=== PATIENT | female | born 1985 | race Two or more races ===

== ENCOUNTER 2018-02-13 20:57 | Emergency (ER) | payer SELFPAY ==
--- NOTE | 2018-02-13 22:17 | ED PDOC ---
History of Present Illness History of Present Illness: 33 y/o F with 27 weeks with hx of hyperthyroidism s/p resection now with hypothyroidism on Synthroid who presents with fever, body aches and sore throat since yesterday evening. pt states that she began having runny nose, mild cough, body aches and fever to 100.2F yesterday. She further endorses B/L ear pain and mild sore throat. Denies N/V, diarrhea, sick contacts, abdominal pain/cramping, dysuria, urinary frequency. Has had the flu shot this season. She called her PMD who advised her to go to ED for blood work and further evaluation. HPI: Influenza Time Seen by Provider: 02/13/18 21:31 Chief Complaint: Fever Chief Complaint (Provider): fever, body aches History Per: Patient Exam Limitations: no limitations Have you had recent travel within the past 21 days to any of: No Onset/Duration Of Symptoms: Days Symptoms include: fever, headache, bodyaches, sore throat, cough, nasal congestion. denies: vomiting, diarrhea, chest pain, difficulty breathing, blurry vision Sick Contacts (Context): None Hx Influenza Vaccination: Yes Risk factors for flu complications: Yes: Past Medical History Reviewed: Historical Data, Nursing Documentation, Vital Signs Vital Signs: Last Vital Signs Temp 98.3 F 02/13/18 21:00 Pulse 109 H 02/13/18 21:00 Resp 16 02/13/18 21:00 BP 122/70 02/13/18 21:00 Pulse Ox 100 02/13/18 21:00 - Medical History PMH: Hypothyroidism - Family History Family History: States: Unknown Family Hx - Living Arrangements Living Arrangements: With Family - Social History Current smoker - smoking cessation education provided: No Ex-Smoker (has not smoked in the last 12 months): No Alcohol: None Drugs: Denies - Immunization History Hx Influenza Vaccination: Yes - Home Medications Home Medications: Ambulatory Orders Medication Instructions Recorded Acetaminophen [Tylenol 325mg tab] 650 mg PO Q6 PRN 5 Days tab 02/13/18 - Allergies Allergies/Adverse Reactions: Allergies Allergy/AdvReac Type Severity Reaction Status Date / Time No Known Allergies Allergy Verified 02/13/18 21:00 Review of Systems ROS Statement: Except As Marked, All Systems Reviewed And Found Negative Constitutional: Positive for: Fever, Malaise ENT: Positive for: Ear Pain, Nose Congestion, Throat Pain Cardiovascular: Negative for: Chest Pain, Palpitations Respiratory: Positive for: Cough. Negative for: Shortness of Breath Gastrointestinal: Negative for: Nausea, Vomiting, Abdominal Pain Genitourinary Female: Negative for: Vaginal Bleeding Physical Exam - Reviewed Nursing Documentation Reviewed: Yes Vital Signs Reviewed: Yes - Physical Exam Appears: Positive for: Uncomfortable Head Exam: Positive for: ATRAUMATIC Skin: Positive for: Normal Color Eye Exam: Positive for: Normal appearance ENT: Positive for: TM Is/Are (Left normal, Right mildly erythematous), Nasal Congestion, Pharyngeal Erythema (mild). Negative for: Tonsillar Exudate, Tonsillar Swelling Neck: Positive for: Supple Cardiovascular/Chest: Positive for: Regular Rate, Rhythm Respiratory: Positive for: Normal Breath Sounds Lymphatic: Positive for: Normal Exam Neurologic/Psych: Positive for: Alert, Oriented Medical Decision Making Medical Decision Making: Rapid Flu Rapid strep Tylenol 650mg PO x 1 Rapid flu and strep negative. Pt advised to return to ED if worsening ear pain or fever or if she develops shortness of breath. - ECG O2 Sat by Pulse Oximetry: 100 Disposition - Clinical Impression Clinical Impression: URI, acute - Patient ED Disposition Is Patient to be Admitted: No Counseled Patient/Family Regarding: Studies Performed, Diagnosis, Need For Followup, Rx Given - Disposition Disposition: Routine/Home Disposition Time: 22:51 Condition: STABLE Additional Instructions: Return to ED if you develop worsening cough, shortness of breath or fevers. Take Tylenol for body aches or fever. F/u with your primary care doctor or return to ER if your ear pain worsens. Prescriptions: Acetaminophen [Tylenol 325mg tab] 650 mg PO Q6 PRN 5 Days tab PRN Reason: Fever >100.4 F Instructions: Viral Upper Respiratory Infection, Adult (DC) Forms: [employer] (Bulgarian) Print Language: MALAWIAN
[2018-02-13 22:50] VITALS: BP 110/69; PULSE 89; RESP 19; TEMP 98.6
[2018-02-13 23:34] VITALS: O2SAT 100
== END 2018-02-13 22:50 | disposition home or self-care (01) ==
LOC: H.ER 20:57
DX: O99.512 Diseases of the respiratory system complicating pregnancy, second trimester (principal); J06.9 Acute upper respiratory infection, unspecified; O99.282 Endocrine, nutritional and metabolic diseases complicating pregnancy, second trimester; E03.9 Hypothyroidism, unspecified; Z87.891 Personal history of nicotine dependence; Z98.890 Other specified postprocedural states; Z3A.27 27 weeks gestation of pregnancy